=== PATIENT | female | born 1985 | race African-American/Black ===

== ENCOUNTER 2017-03-04 14:39 | Emergency (ER) | payer BC ==
[~2017-03-04] VITALS: Ht 180.3 cm; Wt 105.0 kg
[~2017-03-04 14:39] MED LIST: DIPH50TA PO; LURA40 OR; MEDR4PAK3 PO; TRAZ100 PO; TRIH5 PO
[2017-03-04 14:41] VITALS: BP 113/83; PULSE 83; RESP 18; TEMP 98.6; O2SAT 100
[2017-03-04] MEDS ORDERED: SODIUM CHLORIDE 0.9% FLUSH 10 ML FLUSH IVF PRN (15:45)
[2017-03-04] MEDS ORDERED: PROCHLORPERAZINE INJ 10 MG/2 ML VIAL IVP ONE (15:45)
[2017-03-04] MEDS ORDERED: diphenhydrAMINE HCL 50 MG/ML VIAL IVP ONE (15:45)
--- NOTE | 2017-03-04 15:51 | PD ---
HPI . Insomnia Chief Complaint: Headache Time Seen by Provider: 15:40 Travel History International Travel<30 days: No Contact w/Intl Traveler<30days: No Traveled to known affect area: No History of Present Illness HPI This patient presents with a chief complaint of insomnia and the secondary complaint of headache. She reports she was recently hospitalized in [place] because of alcohol withdrawal. She states that she was using alcohol to treat her insomnia. She was discharged from that hospital with a prescription for trazodone. She states that it is not working for her insomnia. She states that she has not slept in 4 days. She states that she does not need anything for her headache. PFSH Past Medical History Depression: Yes Diabetes: No Diminished Hearing: No Schizophrenia: Yes PNEUMOCCOCAL Vaccine (Year): 2 ?: Not LMP: 03/03/17 Menopausal: No : 1 Para: 0 : 1 Past Surgical History Gynecologic Surgery: Yes ("WHEN I WAS 8 THERY REMOVED SOMETHING FROM MY VAGINA ") Other Surgery: Yes (ANAL A BABY) Social History Alcohol Use: No (SAYS SHE STOPPED THAT A LONG TIME AGO) Tobacco Use: No (USED TO) Substance Use: No (SAYS SHE QUIT " ALL THAT") Allergies-Medications (Allergen,Severity, Reaction): Coded Allergies: paliperidone (Unverified Allergy, Severe, Anaphylaxis, 02/21/17) sulfamethoxazole (Verified Allergy, Intermediate, Edema, 03/04/17) trimethoprim (Verified Allergy, Intermediate, Edema, 03/04/17) Reported Meds & Prescriptions Reported Meds & Active Scripts Active Reported Trazodone (Trazodone HCl) 50 Mg Tab 50 Mg PO HS Review of Systems Except as stated in HPI: all other systems reviewed are Neg General / Constitutional: Positive: Other (insomnia) HENT: Positive: Headaches Psychiatric: Positive: Substance Abuse Physical Exam Narrative GENERAL: Awake and alert and in no acute distress. SKIN: Warm and dry. HEAD: Atraumatic. Normocephalic. EYES: Pupils equal and round. Extraocular movements are intact. NECK: Trachea midline. CARDIOVASCULAR: Regular rate and rhythm. RESPIRATORY: No accessory muscle use. MUSCULOSKELETAL: No obvious deformities. No edema. NEUROLOGICAL: Awake and alert. No obvious cranial nerve deficits. Motor grossly within normal limits. Normal speech. Normal gait and normal finger-nose -finger exam. PSYCHIATRIC: Inappropriately angry appearing. Data Data Last Documented VS Vital Signs Date Time Temp Pulse Resp B/P (MAP) Pulse Ox O2 Delivery O2 Flow Rate FiO2 03/04/17 16:00 18 03/04/17 14:41 98.6 83 113/83 (93) 100 Room Air Orders Orders Iv Access Insert/Monitor (03/04/17 15:42) Sodium Chloride 0.9% Flush (Ns Flush) (03/04/17 15:45) Prochlorperazine Inj (Compazine Inj) (03/04/17 15:45) Diphenhydramine Inj (Benadryl Inj) (03/04/17 15:45) MDM Medical Decision Making Medical Screen Exam Complete: Yes Emergency Medical Condition: Yes Differential Diagnosis Differential diagnosis of headache includes but is not limited to migraine, muscle contraction headache, brain tumor, brain bleed Narrative Course This patient presents with the chief complaint of insomnia and the secondary complaint of headache. I have explained to the patient that we can treat her headache here but that are not prescribed medication through the emergency department. The patient then asked "why am I here." She states that she explained her chief complaint to the triage nurse and that the triage nurse did not tell her that we could not treat insomnia in the emergency department. I have explained to the patient that it is not the nurses role to explain these things to the patient. If she presents to the emergency department, she has to be evaluated by a doctor or [facility] before any treatment recommendations can be made. The patient then told me that she was ready to leave. The patient did change her mind and agreed to stay for treatment of her headache. She has a family member who is very concerned about her alcohol abuse. I have directed the family member to [facility] for treatment of alcohol abuse if the patient so desires. Diagnosis Primary Impression: Insomnia Qualified Codes: G47.00 - Insomnia, unspecified Additional Impressions: Headache Qualified Codes: R51 - Headache Alcohol abuse Patient Instructions: General Instructions Departure Forms: Tests/Procedures Additional Instructions: Follow up at [facility] Disposition: 01 DISCHARGE HOME Condition: Stable Keyonna Tracey MD Mar 04, 2017 15:51
[2017-03-04] MEDS ORDERED: TRAZ50TA12 PO (16:02)
== END 2017-03-04 17:03 | disposition home or self-care (01) ==
LOC: NEPE 14:39
DX: G47.00 Insomnia, unspecified (principal); R51 Headache; F10.10 Alcohol abuse, uncomplicated; Z86.59 Personal history of other mental and behavioral disorders
CPT/HCPCS: 96374; 96375; 99284; J0780; J1200